=== PATIENT | male | born 1945 | race Caucasian/White ===

== ENCOUNTER 2017-10-18 22:04 | Inpatient (IN) | payer OTHER ==
[~2017-10-18] VITALS: Ht 172.7 cm; Wt 74.1 kg
[~2017-10-18 22:04] MED LIST: BENADRYL25 MG PO; CELEBREX200 MG PO; CELECOXIB200 MG PO; CLARITIN,ALAVAR10 MG PO; ENDOCET 5-3251 EACH PO; FIBER TABS625 MG PO; GLUCOSAMINE &1 EAC1 PO; IRON325 M1 PO; MEVACOR20 MG PO; OXYCONTIN10 MG PO; PENNSAID112 GM TP; PROSCAR5 MG PO; SENNA PLUS TAB1 EACH PO; TAMSULOSIN HCL0.4 MG PO; XARELTO10 MG PO
[2017-10-19 10:25] VITALS: BP 126/83
[2017-10-19 11:42] VITALS: BP 142/89
[2017-10-19 17:53] VITALS: BP 140/84
[2017-10-19 17:54] LABS: HEMATOCRIT 36.1 % (38.0-50.0); MCV 98.9 FL (86-99)
[2017-10-19 20:22] VITALS: BP 114/70
[2017-10-20 00:19] VITALS: BP 140/85
[2017-10-20 04:12] VITALS: BP 119/78
[2017-10-20 05:15] LABS: CHLORIDE 106 mEq/L (99-109); POTASSIUM 4.6 mEq/L (3.7-5.4); SODIUM 139 mEq/L (136-147)
[2017-10-20 05:17] LABS: GLUCOSE 108 mg/dL (70-99)
[2017-10-20 05:18] LABS: ANION GAP 7 MEQ/L (2-14)
[2017-10-20 05:21] LABS: GFR ESTIMATE (CALCULATED) > 59 mL/min/ (58.99-99999)
[2017-10-20 05:22] LABS: UREA NITROGEN (BUN) 30 mg/dL (9-23)
[2017-10-20 08:10] VITALS: BP 110/68
[2017-10-20 12:04] VITALS: BP 108/57
[2017-10-20 16:02] VITALS: BP 108/62
[2017-10-20 20:18] VITALS: BP 129/69
[2017-10-21 00:20] VITALS: BP 134/74
[2017-10-21 04:25] VITALS: BP 120/67
[2017-10-21 08:00] VITALS: BP 118/61
[2017-10-21] MEDS ORDERED: BENADRYL25 MG PO (08:04)
[2017-10-21] MEDS ORDERED: DOCUSATE SODIU100 MG PO (08:08)
[2017-10-21] MEDS ORDERED: XARELTO10 MG PO (08:09)
[2017-10-21] MEDS ORDERED: OXYCONTIN10 MG PO (08:09)
[2017-10-21] MEDS ORDERED: ENDOCET 5-3251 EACH PO (08:09)
[2017-10-21 12:00] VITALS: BP 133/64
== END 2017-10-21 14:20 | DRG 470 ==
LOC: CANRESERV 22:04 → ENRESERV 22:04 → 3WEST 10-19 09:41 → 2SOUTH 10-19 09:41 → ENRESERV 10-19 11:20 → 2SOUTH 10-19 12:51 → 3WEST 10-19 17:17
PROVIDERS: Orthopaedic Surgery Sports Medicine
PROC: 0SRD0J9 Replacement of Left Knee Joint with Synthetic Substitute, Cemented, Open Approach (ICD-10-PCS; principal; 2017-10-19)
DX: M17.12 Unilateral primary osteoarthritis, left knee (principal); Z96.651 Presence of right artificial knee joint; Z96.611 Presence of right artificial shoulder joint; Z90.49 Acquired absence of other specified parts of digestive tract; Z80.9 Family history of malignant neoplasm, unspecified; Z82.49 Family history of ischemic heart disease and other diseases of the circulatory system; Z82.62 Family history of osteoporosis
CPT/HCPCS: 73560; 80048; 85014; 85018; C1713; J0131; J0690; J1170; J1885; J2250; J2270; J2795; J3010; J7030; J7050; J7120; L1820; Q0175